=== PATIENT | female | born 1985 | race Caucasian/White ===

== ENCOUNTER 2017-06-16 06:00 | Inpatient (IN) ==
[2017-06-16] MEDS ORDERED: LIDOCAINE 1% (10mg/ml) 2mL INJ PF SDV ID PRN (06:19)
[2017-06-16] MEDS ORDERED: CARBOPROST 250 MCG/ML INJECTION IM PRN (06:19)
[2017-06-16] MEDS ORDERED: ACETAMINOPHEN 500 MG TABLET PO PRN ×2 (06:19→17:03)
[2017-06-16] MEDS ORDERED: METHYLERGONOVINE 0.2 MG/ML INJECTION IM PRN (06:19)
[2017-06-16] MEDS ORDERED: LR 1,000 ML IV PRN (06:19)
[2017-06-16] MEDS ORDERED: D5LR 1,000 ML IV PRN (06:19)
[2017-06-16] MEDS ORDERED: CALCIUM CARBONATE Chewable 500mg TABLET PO PRN ×2 (06:19→17:03)
[2017-06-16] MEDS ORDERED: OXYTOCIN DRIP 30 UNIT/500 ML ML IV PRN (06:19)
[2017-06-16] MEDS ORDERED: MAG-AL + SIM ORAL LIQUID 30ml PO PRN ×2 (06:19→17:03)
--- OUTSIDE RECORDS SUMMARY | 2017-06-16 06:22 | External Medical Summary ---
:1985 Author Organization [employer] Care Team Providers Name Role Phone Sarah Paige Provider Role Unavailable Allergies No Known Allergies Problems No Known Problems Medications No Known Medications Results No Known Results Summary Purpose [employer] Submission
--- OUTSIDE RECORDS SUMMARY | 2017-06-16 06:23 | External Medical Summary ---
:1985 Author Organization [employer] Care Team Providers Name Role Phone Cory Olivares Provider Role Unavailable Allergies, Adverse Reactions, Alerts Substance Reaction Event Type Penicillin anaphylaxis Drug Allergy Problems Problem Type Condition ICD-9 Code Onset Dates Condition Status Assessment Acute bronchitis 466.0 Active Assessment Unspecified otitis media 382.9 Active Assessment Other acute sinusitis 461.8 Active Assessment Cough 786.2 Active Medications Medication Code Code Instructions Start End Date Status [place] [address] 100 MG Orally Jul 20, August 17, 1 capsule - Three times a 2014 2014 as needed day as needed for cough/[place] [address] 108 (90 Base) Jul 20, 1 to 2 82-20 MCG/ACT 2014 puffs as Inhalation every needed 6 hrs as needed for cough/[place] [address] 250 MG Orally as Jul 20, Jul 25, 2 tablets 46-09 directed 2014 2014 on the first day, then 1 tablet daily for 4 days Procedures Procedure Coding System Code Date RAPID INFLUENZA, IN HOUSE CPT-4 34704 Jul 20, 2014 OFFICE VISIT, EST-MOD. COMPLEXITY (25 MIN) CPT-4 99730 Jul 20, 2014 TEST, IN HOUSE CPT-4 80940 Jul 20, 2014 Vital Signs Date/Time: Jul 20, 2014 Height 60 in Weight 122 lbs Temperature 98.0 F Blood Pressure Diastolic 56 mm Hg Blood Pressure Systolic 94 mm Hg Cardiac Monitoring Heart Rate 88 /min BMI 23.82 Index Oximetry 99 % Results No Known Results Summary Purpose [employer] Submission
[2017-06-16 07:33] VITALS: BMI 32.5
--- NOTE | 2017-06-16 08:02 | Anesthesia Preoperative Report ---
Anesthesia Epidural/Spinal Rec - Date and Time Date: 06/16/17 Preoperative Diagnosis: G2, P1 40+ Procedure: Labor Epidural Plan: Epidural - Vital Signs Vital Signs: Temperature 97.5 F 06/16/17 06:19 Pulse Rate 79 06/16/17 06:19 Respiratory Rate 18 06/16/17 06:19 Blood Pressure 108/65 06/16/17 06:19 Pulse Oximetry 100 06/16/17 06:19 NPO since: 0400 cereal and pineapple /Para: P:1 - Medictaions & Allergies Inpatient Medications: Current Medications Acetaminophen (Tylenol) 500 - 1,000 mg PO Q4H PRN PRN Reason: Pain Al Hydroxide/Mg Hydroxide (Maalox Plus) 30 ml PO Q3H PRN PRN Reason: Indigestion Calcium Carbonate (Tums) 500 - 1,000 mg PO Q2H PRN PRN Reason: Indigestion Carboprost Tromethamine (Hemabate) 250 mcg IM O PRN PRN Reason: .Downtime Dextrose/Lactated Ringer's (Dextrose 5%-Lactated Ringers) 1,000 mls @ 125 mls/ hr IV .Q8H PRN PRN Reason: Labor Last Admin: 06/16/17 07:05 Dose: 125 mls/hr Oxytocin (Pitocin Drip) 30 unit in 500 mls @ 2 mls/hr IV .Q24H PRN; Protocol PRN Reason: Induction/Augmentation Last Admin: 06/16/17 07:04 Dose: 2 mls/hr Lactated Ringer's (Lactated Ringers) 1,000 mls @ 999 mls/hr IV .Q1H1M PRN Last Admin: 06/16/17 07:06 Dose: 999 mls/hr Lidocaine HCl (Xylocaine-Mpf 1% Vial) 0.2 mg ID O PRN PRN Reason: IV Start Methylergonovine Maleate (Methergine) 0.2 mg IM O PRN Misoprostol (Cytotec) 800 mcg ID ONCE PRN Allergies/Adverse Reactions: Allergies Allergy/AdvReac Type Severity Reaction Status Date / Time Penicillins Allergy Intermediate CHEST Verified 04/25/17 23:15 TIGHTNESS - Home Medications Home Medications: Home Medications Medication Instructions Recorded Confirmed Type Calcium Carbonate (Tums) 1 tab.chew PO DAILY #0 06/09/13 History Famotidine [Pepcid] 20 mg PO DAILY #0 06/09/13 History - Medical History Neuro/Musculoskeletal: Reports: Depression (anxiety no problems in 10 years ) Renal/Endocrine: Reports: Thyroid Disease Other History: Reports: Now - Surgical History Reproductive Surgery/Treatment: DENIES: Section - Social History Smoking Status: Former smoker - Pertinent Findings Lab Data: CBC and BMP 06/16/17 06:43 - Physical Exam Respiratory Exam: lungs clear, bilateral breath sounds equal Cardiovascular Exam: regular rate and rhythm, no murmur - Airway Assessment Mallampati Score: II TMD: 3 Fingerbreadths Neck Extension: fair Overall Assessment: may be difficult mask vent, may be difficult intubation - ASA ASA Score: 2 - Discussion Discussion: Discussed risks/options/alternatives of anesthesia and questions answered. Patient consents. Nursing pain assessment noted. Attestation Statement: Prior to the delivery of any anesthetic medication, I examined the patient, developed the plan, obtained the patient's consent and discussed the risk and benefits of the procedure with the patient/guardian.
[2017-06-16] MEDS ORDERED: DiphenhydrAMINE 50 MG/ML INJECTION IVP PRN (09:34)
[2017-06-16] MEDS ORDERED: ROPIVACAINE 1% 10MG/ML INJ 200 MG, SUFentanil 50 MCG in NS 100 ML EPI PRN (09:34)
[2017-06-16] MEDS ORDERED: NALOXONE 0.4 MG/ML INJECTION IVP PRN (09:34)
[2017-06-16] MEDS ORDERED: ONDANSETRON 4 MG/2 ML INJECTION IVP PRN (09:34)
[2017-06-16] MEDS: OXYTOCIN DRIP 30 UNIT/500 ML ML IV SCH (16:02)
[2017-06-16] MEDS ORDERED: BENZOCAINE 20% SPRAY 0.5 ML MM ONE (17:03)
[2017-06-16] MEDS ORDERED: DiphenhydrAMINE 25 MG CAPSULE PO PRN (17:03)
[2017-06-16] MEDS ORDERED: HYDROCORTISONE 2.5% CREAM 30gm RECTALLY PRN (17:03)
[2017-06-16] MEDS: HYDROCODONE/APAP 5mg/325mg TABLET PO PRN ×2 (17:51→20:11)
[2017-06-16] MEDS: IBUPROFEN 800 MG TABLET PO PRN (20:11)
[2017-06-17] MEDS: HYDROCODONE/APAP 5mg/325mg TABLET PO PRN ×4 (00:06→16:37)
[2017-06-17] MEDS: OXYTOCIN DRIP 30 UNIT/500 ML ML IV SCH ×2 (00:07→10:34)
[2017-06-17] MEDS: IBUPROFEN 800 MG TABLET PO PRN ×2 (07:09→16:37)
[2017-06-17] MEDS ORDERED: DOCUSATE CALCIUM 240 MG CAPSULE PO SCH (09:00)
--- NOTE | 2017-06-17 10:43 | Progress Note ---
OB PP Progress Note Free Text - Date Date: 06/17/17 - Progress Note Progress Note: vss af doing ok neck sore from pushing q&a-krb
--- NOTE | 2017-06-17 12:47 | Anesthesia Postoperative Note ---
- Date and Time Date: 06/17/17 Time: 12:45 - Status Patient Participated in Evaluation: Patient Participated in Person Vital Signs: Temperature 97 F 06/17/17 05:30 Pulse Rate 71 06/17/17 05:30 Respiratory Rate 14 06/17/17 05:30 Blood Pressure 93/63 06/17/17 05:30 Pulse Oximetry 98 06/17/17 00:05 Respiratory Function: Airway Patent, Regular Respirations Cardiovascular Function: Regular Pulse Mental Status: Alert and Oriented Pain Intensity: 0 Hydration: Taking PO Fluids Complications During Recover: None Apparent Post Anesthesia Care Notes: Denies headache, no problems with ambulation. - Follow-Up Instructions Instructions: Per Surgeon
--- NOTE | 2017-06-17 15:57 | Labor and Delivery Note ---
DATE OF DELIVERY: 06/17/2017 DIAGNOSES 1. 31-year-old white female, G4, P1 at 39.6 weeks gestational age. 2. Pitocin induction of labor for logistics. 3. Artificial rupture of membranes. 4. Epidural anesthesia. 5. Spontaneous vaginal delivery. 6. Nuchal cord x 1. 7. Male infant, 3563 g, 7/8/9 Apgars, (Mohsen Rios). This is a patient of mine who was brought in for an induction for logistics at term. Artificial rupture of membranes occurred at 9:30 a.m. Pitocin reached a maximum of 20 milliunits/minute. Eventually she made it to complete dilation and the OA presentation and then we began pushing. She was not very good at pushing in the traditional way so, taking a cue from her first delivery, we switched to tug-a-rope pushing with a towel. That worked better when I was the person doing it below rather than the nurse. Eventually we had a spontaneous vaginal delivery at 15:58 p.m. Infant was bulb suctioned after delivery of the head. There was a nuchal cord x 1 that was draped over the neck like a scarf coming down in front on each side. It was tight enough I was unable to reduce it so I spread it apart and delivered the baby through it. Then I allowed the cord to drain for about a minute and a half before it was doubly clamped and cut. Apgars were 7/8/9. Cord was doubly clamped and the infant's maternal great-grandmother cut the cord. The placenta delivered spontaneously and was intact. Perineum was intact. Maternal blood type is B+, rubella is immune and GBS is negative. MTDD
[2017-06-17 17:12] VITALS: BP 117/69; PULSE 85; RESP 18; TEMP 97.9; O2SAT 99
== END 2017-06-17 20:05 | disposition home or self-care (01) | DRG 775 ==
LOC: MC 06:16
PROVIDERS: ADMIT Obstetrics & Gynecology; ATTEND Obstetrics & Gynecology